=== PATIENT | female | born 1975 | race Caucasian/White ===

== ENCOUNTER 2016-05-28 13:39 | Emergency (ER) | payer OTHER ==
[2016-05-28 13:59] VITALS: BP 124/69; PULSE 111; TEMP 98.8; BMI 23.4
[2016-05-28] MEDS ORDERED: IBUPROFEN 600 MG TABLET (FP) PO ONE ×2 (14:31→14:47)
--- NOTE | 2016-05-28 14:47 | PDOC ---
History of Present Illness - General Chief Complaint: Sore Throat Stated Complaint: SORE THROAT Time Seen by Provider: 05/28/16 14:15 History Source: Patient Exam Limitations: No Limitations - History of Present Illness Initial Comments: 05/28/16 14:45 41 yr female with c/o sore throat. Pt c/o fever, chills sore throat for 4 days. Pt states her son at home is sick with cough URI symptoms. Pt has asthma, no allergies. 05/28/16 14:46 05/28/16 14:56 Timing/Duration: 1 week Severity: mild Associated Symptoms: reports: denies symptoms Past History - Past Medical History Allergies/Adverse Reactions: Allergies Allergy/AdvReac Type Severity Reaction Status Date / Time No Known Allergies Allergy Verified 05/28/16 13:59 Home Medications: Ambulatory Orders Albuterol Sulfate Inhaler - 2 spray IN PRN 03/27/14 Ferrous Sulfate [Feosol] 325 mg PO BID #60 ud 03/28/14 Diazepam [Valium] 2 mg PO TID PRN #10 tablet MDD 3 10/18/15 Naproxen [Naprosyn -] 500 mg PO BID PRN #20 tablet 10/18/15 Oxycodone HCl/Acetaminophen [Percocet 5-325 mg Tablet] 1 tab PO Q6H PRN #10 tablet MDD 4 10/18/15 Asthma: Yes Cancer: No Cardiac Disorders: No Diabetes: No HTN: No Seizures: No Thyroid Disease: No - Reproductive History (#): 2 Para: 1 Cervical CA: No Dysfunctional Uterine Bleeding: No Endometrial CA: No Polycystic Ovaries: No Therapeutic (s) & number: No Tubal Ligation: No Spontaneous : 0 - Psycho/Social/Smoking Cessation Hx Anxiety: No Suicidal Ideation: No Smoking Status: No Smoking History: Never smoked Have you smoked in the past 12 months: No Number of Cigarettes Smoked Daily: 0 Information on smoking cessation initiated: No Hx Alcohol Use: No Drug/Substance Use Hx: No Substance Use Type: None Hx Substance Use Treatment: No Review of Systems - Review of Systems Able to Perform ROS?: Yes Is the patient limited Maltese proficient: No Constitutional: No: Symptoms Reported HEENTM: Yes: See HPI, Throat Pain Respiratory: No: Symptoms reported Cardiac (ROS): No: Symptoms Reported ABD/GI: No: Symptoms Reported : No: Symptoms Reported Musculoskeletal: No: Symptoms Reported Integumentary: No: Symptoms Reported Neurological: No: Symptoms reported *Physical Exam - Vital Signs Last Vital Signs Temp Pulse Resp BP Pulse Ox 98.8 F 111 H 18 124/69 98 05/28/16 13:56 05/28/16 13:56 05/28/16 13:56 05/28/16 13:56 05/28/16 13:56 - Physical Exam General Appearance: Yes: Nourished, Appropriately Dressed HEENT: positive: EOMI, ADY, Pharyngeal Erythema. negative: Scleral Icterus (L) , Tonsillar Exudate, Tonsillar Erythema Neck: positive: Supple. negative: Lymphadenopathy (R), Lymphadenopathy (L) Respiratory/Chest: positive: Lungs Clear, Normal Breath Sounds. negative: Chest Tender Cardiovascular: positive: Regular Rhythm, Regular Rate Gastrointestinal/Abdominal: positive: Normal Bowel Sounds, Soft Musculoskeletal: positive: Normal Inspection Extremity: positive: Normal Capillary Refill, Normal Inspection, Normal Range of Motion Integumentary: positive: Normal Color, Dry, Warm Neurologic: positive: Fully Oriented, Alert, Normal Mood/Affect, Normal Response , Motor Strength 5/5 Medical Decision Making - Medical Decision Making 05/28/16 14:47 cc: sore throat fever no cough or abd pain will swab for strep motrin for pain 05/28/16 14:53 negative strep will treat for viral pharyngitis *DC/Admit/Observation/Transfer Diagnosis at time of Disposition: Pharyngitis Qualifiers: Pharyngitis/tonsillitis etiology: unspecified etiology Qualified Code(s): J02.9 - Acute pharyngitis, unspecified - Discharge Dispostion Disposition: HOME Condition at time of disposition: Good - Referrals Referrals: Marbella Nunez [Primary Care Provider] - Isak Swift MD [Staff Physician] - - Patient Instructions Additional Instructions: gargle with warm salt water 4-5 times a day take motrin 600mg every 6hrs for pain as needed (over the counter ibuprofen, advil) take pepcid as directed for any reflux or heartburn that may be causing your throat discomfort (over the counter pepcid) follow with ENT this week if not improving ice pops, jello, soft foods
== END 2016-05-28 15:17 | disposition home or self-care (01) ==
LOC: JERFT 13:39
DX: J02.9 Acute pharyngitis, unspecified (principal)
CPT/HCPCS: 87070; 87430; 99281-25

== ENCOUNTER 2016-12-27 07:44 | Emergency (ER) | payer OTHER ==
[2016-12-27 07:48] VITALS: BP 148/86; PULSE 66; TEMP 98.3; BMI 25.4
[2016-12-27] MEDS ORDERED: KETOROLAC TROMETHAMINE 60 MG/2 ML VIAL IM ONE (08:36)
--- NOTE | 2016-12-27 08:36 | PDOC ---
History of Present Illness - General Chief Complaint: Pain Stated Complaint: UPPER BACK PAIN, SOB Time Seen by Provider: 12/27/16 08:14 History Source: Patient Exam Limitations: No Limitations - History of Present Illness Initial Comments: 12/27/16 08:21 Patient is a 41-year-old female, no significant medical history currently on no medication reports that she had a cough 3 days ago after coughing developed left sided back pain. Reports the pain is reproducible with movement, patient denies any recent travel, no pain on inspiration, no use of exogenous estrogen. Patient denies any urinary symptoms, no hematuria. No Rash LMP 12/13 Past Medical History: Denies. Allergies: No known allergies Medications: None Family History: Non-contributory Social History: Denies smoking, alcohol use, or IVDU Review of Systems GENERAL/CONSTITUTIONAL: No fever or chills. No weakness. No weight change. HEAD, EYES, EARS, NOSE AND THROAT: No change in vision. No ear pain or discharge. No sore throat. CARDIOVASCULAR: No chest pain or shortness of breath. RESPIRATORY: No cough, wheezing, or hemoptysis. GASTROINTESTINAL: No nausea, vomiting, diarrhea or constipation. No rectal bleeding. GENITOURINARY: No dysuria, frequency, or change in urination. MUSCULOSKELETAL: No joint or muscle swelling or pain. No neck or back pain. Reproducible left lateral torso pain SKIN: No rash or easy bruising. NEUROLOGIC: No headache, vertigo, loss of consciousness, or loss of sensation. Physical Exam: GENERAL: The patient is awake, alert, and fully oriented, in no acute distress. EYES: Pupils equal, round and reactive to light, extraocular movements intact, sclera anicteric, conjunctiva clear. ENT: Ears normal, nares patent, oropharynx clear without exudates. Moist mucous membranes. No uvula deviation NECK: Normal range of motion, supple without lymphadenopathy, JVD, or masses. LUNGS: Breath sounds equal, clear to auscultation bilaterally. No wheezes, and no crackles. HEART: Regular rate and rhythm, normal S1 and S2 without murmur, rub or gallop. ABDOMEN: Soft, nontender, normoactive bowel sounds. No guarding, no rebound. No masses. No bruising or abrasions MUSCULOSKELETAL: Normal range of motion, no edema. No clubbing or cyanosis. No cords, erythema, or tenderness. No CVA Tenderness with fist palpation. There is pain reproduced on palpation to musculature of left lateral chest. NEUROLOGICAL: Cranial nerves II through XII grossly intact. Normal speech, normal gait. SKIN: Warm, Dry, normal turgor, no rashes or lesions noted. 12/27/16 10:47 12/27/16 12:41 Past History - Past Medical History Allergies/Adverse Reactions: Allergies Allergy/AdvReac Type Severity Reaction Status Date / Time No Known Allergies Allergy Verified 12/27/16 07:48 Home Medications: Ambulatory Orders Ibuprofen [Motrin -] 600 mg PO QID #28 tablet 12/27/16 Asthma: Yes Cancer: No Cardiac Disorders: No Diabetes: No HTN: No Seizures: No Thyroid Disease: No - Reproductive History (#): 2 Para: 1 Cervical CA: No Dysfunctional Uterine Bleeding: No Endometrial CA: No Polycystic Ovaries: No Therapeutic (s) & number: No Tubal Ligation: No Spontaneous : 0 - Suicide/Smoking/Psychosocial Hx Smoking Status: No Smoking History: Never smoked Have you smoked in the past 12 months: No Number of Cigarettes Smoked Daily: 0 Hx Alcohol Use: No Drug/Substance Use Hx: No Substance Use Type: None Hx Substance Use Treatment: No *Physical Exam - Vital Signs Last Vital Signs Temp Pulse Resp BP Pulse Ox 98.3 F 66 18 148/86 100 12/27/16 07:45 12/27/16 07:45 12/27/16 07:45 12/27/16 07:45 12/27/16 07:45 Medical Decision Making - Medical Decision Making 12/27/16 12:44 A/P: Patient here for evaluation of left lateral back pain. Denies any trauma, there is no rash, pain is reproducible with movement only. No pain on inspiration. Pain to musculature of chest. Urine analysis sent to rule out kidney stones, chest x-ray PA lateral Chest x-rays negative for acute cardiopulmonary disease. Urine analysis is noted with +1 blood, without CVA tenderness, or urinary symptoms. Toradol 60 mg IM times one given with good result Patient states relief of pain. We'll DC palpation on anti-inflammatories, if any urinary symptoms, back pain, or any other concerns patient to return immediately to ER she states that she will follow-up with her primary care doctor either today or tomorrow. I discussed the physical exam findings, ancillary test results and final diagnoses with the patient. I answered all of the patient's questions. The patient was satisfied with the care received and felt comfortable with the discharge plan and treatment plan. The patient will call to arrange follow-up and will return to the Emergency Department with any new, persistent or worsening symptoms. *DC/Admit/Observation/Transfer Diagnosis at time of Disposition: Costochondritis - Discharge Dispostion Disposition: HOME Condition at time of disposition: Good Admit: No - Prescriptions Prescriptions: Ibuprofen [Motrin -] 600 mg PO QID #28 tablet - Referrals Referrals: Marbella Nunez [Primary Care Provider] - - Patient Instructions Additional Instructions: If you develop urinary pain, fever, increased back pain, hematuria, or any other concerns return to ER Motrin every 6 hours with food for the next 3 days if pain persists follow up with primary care doctor or return to ER - Post Discharge Activity Forms/Work/School Notes: Back to Work
[2016-12-27] MEDS ORDERED: KETOROLAC TROMETHAMINE 60 MG/2 ML VIAL ONE (09:01)
[2016-12-27 10:21] LABS: URINE APPEARANCE SLCLOUDY; URINE BILIRUBIN NEGATIVE (NEGATIVE); URINE BLOOD 1+ (NEGATIVE); URINE COLOR LTYELLOW; URINE GLUCOSE (UA) NEGATIVE (NEGATIVE); URINE KETONE NEGATIVE (NEGATIVE); URINE NITRITE NEGATIVE (NEGATIVE); URINE PROTEIN NEGATIVE (NEGATIVE); URINE UROBILINOGEN NEGATIVE mg/dL (0.2-1.0)
[2016-12-27 10:31] LABS: URINE RBC 3 /hpf (0-3); URINE WBC <1 /hpf (3-5)
[2016-12-27 14:23] LABS: URINE LEUK ESTERASE Negative (NEGATIVE)
== END 2016-12-27 11:02 | disposition home or self-care (01) ==
LOC: JER 07:44 → JERFT 07:44
PROC: 3E0233Z Introduction of Anti-inflammatory into Muscle, Percutaneous Approach (ICD-10-PCS; principal; 2016-12-27)
DX: M94.0 Chondrocostal junction syndrome [Tietze] (principal)
CPT/HCPCS: 71020-TC; 81003; 81015; 84703; 99281-25

== ENCOUNTER 2017-11-10 17:09 | Emergency (ER) | payer OTHER ==
[2017-11-10 17:21] VITALS: BP 117/69; PULSE 74; TEMP 99.1; BMI 26.4
[2017-11-10] MEDS ORDERED: KETOROLAC TROMETHAMINE 60 MG/2 ML VIAL ONE (18:46)
[2017-11-10] MEDS ORDERED: KETOROLAC TROMETHAMINE 60 MG/2 ML VIAL IM ONE (19:03)
--- NOTE | 2017-11-10 19:14 | PDOC ---
History of Present Illness - General Chief Complaint: Pain, Acute Stated Complaint: PAIN Time Seen by Provider: 11/10/17 18:17 History Source: Patient Exam Limitations: No Limitations - History of Present Illness Initial Comments: 11/10/17 19:03 Patient is here with re-exacerbation of neck and shoulder pain. Has had significant shoulder issues including a rotator cuff repair 2 years ago and has suffered with neck and shoulder pain since that time. States has had no changes in exercise, no heavy lifting, no in 3 injury or trauma recently but states has progressively worsening of pain primarily to the right side of her neck which radiates to her scalp and right shoulder. Occurred: reports: last week Severity: reports: mild, moderate Pain Location: reports: head, neck, upper extremity Method of Injury: Yes: unknown Modifying Factors: improves with: None, pain medication (right shoulder) Associated Symptoms (Fall): headache, neck pain Past History - Travel Traveled outside of the country in the last 30 days: No Close contact w/someone who was outside of country & ill: No - Past Medical History Allergies/Adverse Reactions: Allergies Allergy/AdvReac Type Severity Reaction Status Date / Time No Known Allergies Allergy Verified 11/10/17 17:21 Home Medications: Ambulatory Orders Cyclobenzaprine HCl 10 mg PO Q8H PRN #14 tablet 11/10/17 Naproxen [Naprosyn -] 500 mg PO BID #30 tablet 11/10/17 Asthma: Yes Cancer: No Cardiac Disorders: No COPD: No Diabetes: No HTN: No Seizures: No Thyroid Disease: No - Reproductive History (#): 2 Para: 1 Cervical CA: No Dysfunctional Uterine Bleeding: No Endometrial CA: No Polycystic Ovaries: No Therapeutic (s) & number: No Tubal Ligation: No Spontaneous : 0 - Suicide/Smoking/Psychosocial Hx Smoking Status: No Smoking History: Never smoked Have you smoked in the past 12 months: No Number of Cigarettes Smoked Daily: 0 Hx Alcohol Use: No Drug/Substance Use Hx: No Substance Use Type: None Hx Substance Use Treatment: No Review of Systems - Review of Systems Able to Perform ROS?: Yes Is the patient limited Belarusian proficient: Yes Constitutional: Yes: Symptoms Reported, See HPI, Malaise. No: Fever HEENTM: No: Symptoms Reported Respiratory: No: Symptoms reported *Physical Exam - Vital Signs Last Vital Signs Temp Pulse Resp BP Pulse Ox 99.1 F 74 18 117/69 100 11/10/17 17:18 11/10/17 17:18 11/10/17 17:18 11/10/17 17:18 11/10/17 17:18 - Physical Exam General Appearance: Yes: Nourished, Appropriately Dressed HEENT: positive: ADY, TMs Normal Neck: positive: Supple. negative: Tender Respiratory/Chest: positive: Lungs Clear Gastrointestinal/Abdominal: positive: Soft Musculoskeletal: positive: Normal Inspection, Muscle Spasm (palpable spasm noted to the sternocleidomastoid and paravertebral spinous muscles worse on the right than the left. With pressure at the insertion sites can reproduce scalp headache and muscular tenderness. Has no C-spine tenderness, shoulder capsule has no). negative: Decreased Range of Motion Extremity: positive: Normal Capillary Refill, Normal Inspection, Tender. negative: Normal Range of Motion Integumentary: positive: Normal Color, Dry, Warm. negative: Rash Neurologic: positive: route salesperson II-XII NML intact, Fully Oriented, Alert, Normal Mood/ Affect, Normal Response Progress Note - Progress Note Progress Note: Cervical strain with acute on chronic right shoulder pain. We will treat with NSAIDs and cyclobenzaprine *DC/Admit/Observation/Transfer Diagnosis at time of Disposition: Cervical myofascial strain Qualifiers: Encounter type: initial encounter Qualified Code(s): S16.1XXA - Strain of muscle, fascia and tendon at neck level, initial encounter - Discharge Dispostion Disposition: HOME Condition at time of disposition: Stable Decision to Admit order: No - Referrals - Patient Instructions Printed Discharge Instructions: DI for Cervical Muscle Strain Additional Instructions: Rest, no heavy lifting or exercise until pain is resolved Hot soaks to neck and low back as often as possible/hot showers or Jacuzzis No massage or therapy until spasm is gone Continue Naprosyn 500 mg tablet, 1 tablet every 12 hours for the next 3 days then as needed for pain and swelling Cyclobenzaprine 1-10mg every 8 hours as needed for spasm If not significant improvement within 24 hours with medication and rest regime, followup with private physician for change in medications and /or therapy. - Post Discharge Activity Forms/Work/School Notes: Back to Work
== END 2017-11-10 19:17 | disposition home or self-care (01) ==
LOC: JERFT 17:09
PROC: 3E0233Z Introduction of Anti-inflammatory into Muscle, Percutaneous Approach (ICD-10-PCS; principal; 2017-11-10)
DX: S16.1XXA Strain of muscle, fascia and tendon at neck level, initial encounter (principal); X58.XXXA Exposure to other specified factors, initial encounter; Y93.89 Activity, other specified; Y92.9 Unspecified place or not applicable; J45.909 Unspecified asthma, uncomplicated
CPT/HCPCS: 96372; 99281-25

== ENCOUNTER 2018-05-24 13:14 | Emergency (ER) | payer OTHER ==
--- NOTE | 2018-05-24 13:48 | PDOC ---
Rapid Medical Evaluation Chief Complaint: Back Pain Time Seen by Provider: 05/24/18 13:47 Medical Evaluation: Allergies Allergy/AdvReac Type Severity Reaction Status Date / Time No Known Allergies Allergy Verified 11/10/17 17:21 05/24/18 13:47 I performed a brief in-person evaluation of this patient. Chief complaint: Left flank pain, hx kidney stones Pertinent physical exam findings: Left CVA tenderness I have ordered the following: CBC, CMP, UA, urine culture, urine preg Patient to proceed to the ED for further evaluation. Discharge Disposition - Diagnosis Flank pain - Referrals - Patient Instructions - Post Discharge Activity
[2018-05-24 13:49] VITALS: TEMP 98.3; BMI 27.2
[2018-05-24 14:15] LABS: BASO % 0.2 % (0-2.0); EOS % 3.4 % (0-4.5); HEMATOCRIT 38.1 % (32.4-45.2); HEMOGLOBIN 13.1 GM/dL (10.7-15.3); LYMPH % 27.3 % (8-40); MCH 30.1 pg (25.7-33.7); MCHC 34.4 g/dl (32.0-36.0); MEAN CELL VOLUME 87.5 fl (80-96); MEAN PLT VOLUME 8.1 fl (7.5-11.1); MONO % 4.9 % (3.8-10.2); NEUT % 64.2 % (42.8-82.8); PLATELET COUNT 316 K/MM3 (134-434); RBC 4.35 M/mm3 (3.60-5.2); WHITE BLOOD COUNT 9.1 K/mm3 (4.0-10.0)
[2018-05-24 14:34] LABS: URINE APPEARANCE CLEAR; URINE BILIRUBIN NEGATIVE (<2.0 mg/dL); URINE COLOR STRAW; URINE GLUCOSE (UA) NEGATIVE (NEGATIVE); URINE KETONE NEGATIVE (NEGATIVE); URINE LEUK ESTERASE NEGATIVE (NEGATIVE); URINE NITRITE NEGATIVE (NEGATIVE); URINE PROTEIN NEGATIVE (NEGATIVE); URINE UROBILINOGEN NEGATIVE mg/dL (0.2-1.0)
[2018-05-24 14:36] LABS: HCG,QUALITATIVE URINE Negative
[2018-05-24 14:42] LABS: ALK PHOS 59 U/L (45-117); ANION GAP 5 MMOL/L (8-16); BILIRUBIN,TOTAL 0.3 mg/dL (0.2-1); BLOOD UREA NITROGEN 6 mg/dL (7-18); CALCIUM 9.6 mg/dL (8.5-10.1); CHLORIDE 103 mmol/L (98-107); CO2 28 mmol/L (21-32); CREATININE 0.6 mg/dL (0.55-1.3); GLUCOSE,RANDOM 82 mg/dL (74-106); POTASSIUM 4.2 mmol/L (3.5-5.1); SGOT/AST 9 U/L (15-37); SGPT/ALT 13 U/L (13-61); SODIUM 135 mmol/L (136-145); TOT PROT 8.5 g/dl (6.4-8.2)
[2018-05-24] MEDS ORDERED: IBUPROFEN 600 MG TABLET (FP) PO ONE ×2 (16:39→16:41)
--- NOTE | 2018-05-24 17:40 | PDOC ---
History of Present Illness - General Chief Complaint: Back Pain Stated Complaint: KIDNEY PAIN Time Seen by Provider: 05/24/18 13:47 - History of Present Illness Initial Comments: The pt is a 43F w/ a history of kidney stones, ovarian cysts, and pyelonephritis who presents for evaluation of L flank pain for 3 days. She reports the pain is achy/cramping, is worse in her L back, radiates to her flank , reports associated dysuria/frequency, and was not alleviated by Tylenol. Reports similar pain with previous kidney stones in the past. She denies fevers , hematuria, diarrhea, blood in stool, chest pain, PO intolerance, or vaginal bleeding/discharge. Past History - Past Medical History Allergies/Adverse Reactions: Allergies Allergy/AdvReac Type Severity Reaction Status Date / Time No Known Allergies Allergy Verified 11/10/17 17:21 Home Medications: Ambulatory Orders NK [No Known Home Medication] 05/24/18 Asthma: Yes Cancer: No Cardiac Disorders: No COPD: No Diabetes: No HTN: No Seizures: No Thyroid Disease: No Other medical history: Kidney stone - Reproductive History (#): 2 Para: 1 Cervical CA: No Dysfunctional Uterine Bleeding: No Endometrial CA: No Polycystic Ovaries: No Therapeutic (s) & number: No Tubal Ligation: No Spontaneous : 0 - Suicide/Smoking/Psychosocial Hx Smoking Status: No Smoking History: Never smoked Have you smoked in the past 12 months: No Number of Cigarettes Smoked Daily: 0 Information on smoking cessation initiated: No Hx Alcohol Use: No Drug/Substance Use Hx: No Substance Use Type: None Hx Substance Use Treatment: No Review of Systems - Review of Systems Able to Perform ROS?: Yes Comments:: GENERAL/CONSTITUTIONAL: No fever or chills. No weakness HEAD, EYES, EARS, NOSE AND THROAT: No change in vision. No ear pain or discharge. No sore throat CARDIOVASCULAR: No chest pain or shortness of breath RESPIRATORY: Denies cough, hemoptysis GASTROINTESTINAL: No nausea, vomiting, diarrhea or constipation MUSCULOSKELETAL: No joint or muscle swelling or pain. No neck pain SKIN: No rash NEUROLOGIC: No headache, vertigo, loss of consciousness, or change in strength/ sensation ENDOCRINE: No increased thirst. No abnormal weight change HEMATOLOGIC/LYMPHATIC: No anemia, easy bleeding, or history of blood clots ALLERGIC/IMMUNOLOGIC: No hives or skin allergy Is the patient limited Georgian proficient: No *Physical Exam - Vital Signs Last Vital Signs Temp Pulse Resp BP Pulse Ox 98.3 F 82 20 117/75 100 05/24/18 13:47 05/24/18 13:47 05/24/18 13:47 05/24/18 13:47 05/24/18 13:47 - Physical Exam Comments: GENERAL: Awake, alert, and oriented to person/place/time, in no acute distress HEAD: No signs of trauma, normocephalic, atraumatic EYES: PERRLA, EOMI, sclera anicteric, conjunctiva clear ENT: Hearing grossly normal, nares patent, oropharynx clear without exudates. Moist mucosa LUNGS: No distress, speaks full sentences, clear to auscultation bilaterally HEART: Regular rate and rhythm, normal S1 and S2, no murmurs appreciated, peripheral pulses normal and equal bilaterally BACK: L CVA TTP ABDOMEN: Soft, LLQ pain that is referred to her back, normoactive bowel sounds. No guarding, no rebound EXTREMITIES: Normal inspection, Normal range of motion, no edema. No clubbing or cyanosis NEUROLOGICAL: Cranial nerves II through XII grossly intact. Normal speech, no focal sensorimotor deficits SKIN: Warm, Dry Moderate Sedation - Procedure Monitoring Vital Signs: Procedure Monitoring Vital Signs Temperature 98.3 F 05/24/18 13:47 Pulse Rate 82 05/24/18 13:47 Respiratory Rate 20 05/24/18 13:47 Blood Pressure 117/75 05/24/18 13:47 O2 Sat by Pulse Oximetry (%) 100 05/24/18 13:47 ED Treatment Course - LABORATORY CBC & Chemistry Diagram: 05/24/18 13:55 05/24/18 13:55 - ADDITIONAL ORDERS Additional order review: Laboratory Results 05/24/18 05/24/18 14:01 13:55 Sodium 135 L Potassium 4.2 Chloride 103 Carbon Dioxide 28 Anion Gap 5 L BUN 6 L Creatinine 0.6 Creat Clearance w eGFR 109.11 Random Glucose 82 Calcium 9.6 Total Bilirubin 0.3 AST 9 L ALT 13 Alkaline Phosphatase 59 Total Protein 8.5 H Albumin 4.0 Urine Color Straw Urine Appearance Clear Urine pH 6.0 Ur Specific [place] 1.004 L Urine Protein Negative Urine Glucose (UA) Negative Urine Ketones Negative Urine Blood Negative Urine Nitrite Negative Urine Bilirubin Negative Urine Urobilinogen Negative Ur Leukocyte Esterase Negative Urine HCG, Qual Negative 05/24/18 13:55 RBC 4.35 MCV 87.5 MCHC 34.4 RDW 13.0 D MPV 8.1 Neutrophils % 64.2 Lymphocytes % 27.3 D Monocytes % 4.9 Eosinophils % 3.4 Basophils % 0.2 - RADIOLOGY Radiology Studies Ordered: Category Date Time Status SPIRAL- RENAL-STONE CT [CT] Stat CT Scan 05/24/18 16:41 Taken - Medications Given in the ED: ED Medications Discontinued Medications Generic Name Dose Route Start Last Admin Trade Name Freq PRN Reason Stop Dose Admin Ibuprofen 600 mg 05/24/18 16:41 05/24/18 17:09 Motrin - PO 05/24/18 16:42 600 mg ONCE ONE Administration Medical Decision Making - Medical Decision Making The pt is a 43F w/ a history of nephrolithiasis, pyelonephritis, and ovarian cysts who presents for evaluation of 3 days of L flank pain and dysuria ED Course Labs sent Ibuprofen for pain UA w/o evidence of UTI CT w/o evidence of stone or hydro No leukocytosis No anemia No MISSY Plan for transvaginal US for evaluation of ovarian cyst Pt singed out to night team *DC/Admit/Observation/Transfer Diagnosis at time of Disposition: Flank pain - Discharge Dispostion Disposition: HOME Condition at time of disposition: Improved Decision to Admit order: No - Referrals - Patient Instructions Printed Discharge Instructions: DI for Ovarian Cyst Additional Instructions: You were evaluated today in the ER for your pain. We performed abdominal CT as well as transvaginal ultrasound and found a 2cm left ovarian cyst that could be causing your pain. No other concerning findings were found today. Please follow- up with your DIGITAL SOLUTION ARCHITECT in 1-2 days for further evaluation. Return to ER if any increase in pain, fever, chills, or other concerning findings. - Post Discharge Activity
--- NOTE | 2018-05-24 19:33 | PDOC ---
Attending Attestation - Resident Resident Name: Raffaele Beck - ED Attending Attestation I have performed the following: I have examined & evaluated the patient, The case was reviewed & discussed with the resident, I agree w/resident's findings & plan, Exceptions are as noted - HPI HPI: 05/24/18 23:29 The patient is a 43 year old female with a significant PMH of kidney stones, pyelonephritis, and ovarian cysts who presents to the emergency department with left flank pain for the past 3 days. Patient states the left flank pain is constant and radiates the the left lower quadrant. Patient admits to associated dysuria and frequency, but denies any hematuria. Patient also endorses nausea, but denies any vomiting. Denies vaginal DC. States there is no likelihood she is . The patient denies chest pain, shortness of breath, headache and dizziness. Denies fever, chills, nausea, vomit, diarrhea and constipation. Denies urgency and hematuria. Allergies: NKA Past surgical history: None reported Social history: No reported alcohol, drug or cigarette use. - Physicial Exam PE: 05/24/18 23:30 agree with resident exam - Medical Decision Making 05/24/18 19:30 43yo F hx renal colic, pyelo, ovarian cyst presents to the ED with 3 days of L flank radiating to LLQ pain. Pt states it feels like previous renal colic. Vitals wnl. Pt well appearing, non toxic. Exam with no abd ttp, no CVAT. DDx IBNLT renal colic vs UTI vs diverticulitis vs ovarian cyst. UPT neg, UA neg CTAP completely neg for acute pathology, including neg for diverticulitis. Possible ovarian cyst? Pt declines pelvic exam, but amenable to TVUS Case signed out to oncoming attending for f/u on US, reassessment, and dispo
--- NOTE | 2018-05-24 20:02 | PDOC ---
*Physical Exam - Vital Signs Last Vital Signs Temp Pulse Resp BP Pulse Ox 98.3 F 78 18 106/77 100 05/24/18 19:00 05/24/18 19:00 05/24/18 19:00 05/24/18 19:00 05/24/18 19:00 ED Treatment Course - LABORATORY CBC & Chemistry Diagram: 05/24/18 13:55 05/24/18 13:55 - ADDITIONAL ORDERS Additional order review: Laboratory Results 05/24/18 05/24/18 14:01 13:55 Sodium 135 L Potassium 4.2 Chloride 103 Carbon Dioxide 28 Anion Gap 5 L BUN 6 L Creatinine 0.6 Creat Clearance w eGFR 109.11 Random Glucose 82 Calcium 9.6 Total Bilirubin 0.3 AST 9 L ALT 13 Alkaline Phosphatase 59 Total Protein 8.5 H Albumin 4.0 Urine Color Straw Urine Appearance Clear Urine pH 6.0 Ur Specific Mounds 1.004 L Urine Protein Negative Urine Glucose (UA) Negative Urine Ketones Negative Urine Blood Negative Urine Nitrite Negative Urine Bilirubin Negative Urine Urobilinogen Negative Ur Leukocyte Esterase Negative Urine HCG, Qual Negative 05/24/18 13:55 RBC 4.35 MCV 87.5 MCHC 34.4 RDW 13.0 D MPV 8.1 Neutrophils % 64.2 Lymphocytes % 27.3 D Monocytes % 4.9 Eosinophils % 3.4 Basophils % 0.2 - Medications Given in the ED: ED Medications Discontinued Medications Generic Name Dose Route Start Last Admin Trade Name Freq PRN Reason Stop Dose Admin Ibuprofen 600 mg 05/24/18 16:41 05/24/18 17:09 Motrin - PO 05/24/18 16:42 600 mg ONCE ONE Administration Medical Decision Making - Medical Decision Making 05/24/18 20:[address] Beck. 05/24/18 20:02 Patient is a 43 yo female w/ pmh of Asthma who presents for evaluation of left flank pain in the setting of prior nephrolithiasis. Patient evaluated with CT spiral w/ no concerning findings. Patient currently well appearing; pending TVUS for further evaluation. Labs otherwise wnl at this time. 05/24/18 20:48 TVUS significant for 2cm L ovarian follicle/cyst. No acute pathology at this time. Patient well appearing, no concern for acute process. Patient will follow- up with TEXTILE CONVERSION MANAGER for further evaluation. Discharging to home. *DC/Admit/Observation/Transfer Diagnosis at time of Disposition: Flank pain - Discharge Dispostion Disposition: HOME - Referrals - Patient Instructions Printed Discharge Instructions: DI for Ovarian Cyst Additional Instructions: You were evaluated today in the ER for your pain. We performed abdominal CT as well as transvaginal ultrasound and found a 2cm left ovarian cyst that could be causing your pain. No other concerning findings were found today. Please follow- up with your TEXTILE CONVERSION MANAGER in 1-2 days for further evaluation. Return to ER if any increase in pain, fever, chills, or other concerning findings. - Post Discharge Activity
--- NOTE | 2018-05-24 20:32 | PDOC ---
*Physical Exam - Vital Signs Last Vital Signs Temp Pulse Resp BP Pulse Ox 98.3 F 78 18 106/77 100 05/24/18 19:00 05/24/18 19:00 05/24/18 19:00 05/24/18 19:00 05/24/18 19:00 ED Treatment Course - LABORATORY CBC & Chemistry Diagram: 05/24/18 13:55 05/24/18 13:55 - ADDITIONAL ORDERS Additional order review: Laboratory Results 05/24/18 05/24/18 14:01 13:55 Sodium 135 L Potassium 4.2 Chloride 103 Carbon Dioxide 28 Anion Gap 5 L BUN 6 L Creatinine 0.6 Creat Clearance w eGFR 109.11 Random Glucose 82 Calcium 9.6 Total Bilirubin 0.3 AST 9 L ALT 13 Alkaline Phosphatase 59 Total Protein 8.5 H Albumin 4.0 Urine Color Straw Urine Appearance Clear Urine pH 6.0 Ur Specific Post 1.004 L Urine Protein Negative Urine Glucose (UA) Negative Urine Ketones Negative Urine Blood Negative Urine Nitrite Negative Urine Bilirubin Negative Urine Urobilinogen Negative Ur Leukocyte Esterase Negative Urine HCG, Qual Negative 05/24/18 13:55 RBC 4.35 MCV 87.5 MCHC 34.4 RDW 13.0 D MPV 8.1 Neutrophils % 64.2 Lymphocytes % 27.3 D Monocytes % 4.9 Eosinophils % 3.4 Basophils % 0.2 - Medications Given in the ED: ED Medications Discontinued Medications Generic Name Dose Route Start Last Admin Trade Name Freq PRN Reason Stop Dose Admin Ibuprofen 600 mg 05/24/18 16:41 05/24/18 17:09 Motrin - PO 05/24/18 16:42 600 mg ONCE ONE Administration Medical Decision Making - Medical Decision Making 05/24/18 20:30 Pt has left flank pain; pain is elicited with deep palpation, rather than with percussion. She has no fever or chills. She has no abd pain. Pt is eating well. She states that she always has constipation. She complains of slight frequency of urination as well as some heaviness when she urinates. She has no other complaints. Pt was signed out to me. All labs and UA are normal. Pt is awaiting sono of her ovaries. 05/24/18 21:49 CT and sono normal. Pt stable to go home. *DC/Admit/Observation/Transfer Diagnosis at time of Disposition: Flank pain - Discharge Dispostion Disposition: HOME - Referrals - Patient Instructions Printed Discharge Instructions: DI for Ovarian Cyst Additional Instructions: You were evaluated today in the ER for your pain. We performed abdominal CT as well as transvaginal ultrasound and found a 2cm left ovarian cyst that could be causing your pain. No other concerning findings were found today. Please follow- up with your MANAGER CULTURE in 1-2 days for further evaluation. Return to ER if any increase in pain, fever, chills, or other concerning findings. - Post Discharge Activity
[2018-05-24 21:06] VITALS: BP 116/79; PULSE 82
== END 2018-05-24 21:07 | disposition home or self-care (01) ==
LOC: JER 13:14
DX: R10.32 Left lower quadrant pain (principal)
CPT/HCPCS: 36415; 74176-TC; 76830-TC; 80053; 81003; 84703; 85025; 87086; 99283-25

== ENCOUNTER 2018-09-10 04:48 | Emergency (ER) | payer OTHER ==
[2018-09-10 05:14] VITALS: BP 108/71; PULSE 77; TEMP 97.6; BMI 27.3
--- NOTE | 2018-09-10 05:41 | PDOC ---
Attending Attestation - Resident Resident Name: Lokesh Parham - ED Attending Attestation I have performed the following: I have examined & evaluated the patient, The case was reviewed & discussed with the resident, I agree w/resident's findings & plan - HPI HPI: 09/10/18 06:44 43-year-old female with pelvic pain currently menstruating There is no associated fever vomiting or back pain. - Physicial Exam PE: 09/10/18 06:46 GENERAL: Awake, in no acute distress HEAD: No signs of trauma EYES: ENT:clear without exudates. Moist mucosa NECK: Normal ROM, LUNGS:. Normal work of breathing. HEART: Regular rate and rhythm, ABDOMEN: Soft, nondistended CHEST WALL: : No CMT, fresh blood in the vaginal vault BACK: No midline tenderness. EXTREMITIES:. No erythema, or tenderness NEUROLOGICAL: Alert, SKIN: Warm, Dry - Medical Decision Making 09/10/18 06:47 43-year-old female with pelvic pain and active menses Plan for ultrasound to rule out hemorrhagic ovarian cyst/torsion as pain is out of proportion for simple dysmenorrhea Case signed out to day shift
--- NOTE | 2018-09-10 06:14 | PDOC ---
History of Present Illness - General Chief Complaint: Pain Stated Complaint: ABD PAIN Time Seen by Provider: 09/10/18 05:34 History Source: Patient Exam Limitations: No Limitations - History of Present Illness Initial Comments: 09/10/18 06:12 43F with PMH of 2 c-sections, tubal ligation, and ovarian cysts presents with abdominal pain in the setting of menses. Patient's period began yesterday, began experiencing 9/10 lower abdominal pain in the evening. New onset, describes as similar to contractions during childbirth, has pain with menses normally but never to this extent. Dysmenorrhea began one year ago, after she was found to have 2 ovarian cysts, described to her by PMD as small but not yet worked up. Since, periods are irregular with increased bleeding and clots. Pain unaffected by position, took 2 Tylenol 500mg last night with limited relief. Has some nausea and constipation, but denies vomiting. Appetite normal, eating without issues. Last intercourse 2 days ago, no dyspareunia noted, denies being s/p tubal ligation. No dysuria or hematuria. No fevers/chills, chest pain, SOB. Past History - Past Medical History Allergies/Adverse Reactions: Allergies Allergy/AdvReac Type Severity Reaction Status Date / Time No Known Allergies Allergy Verified 09/10/18 05:14 Home Medications: Ambulatory Orders Albuterol Sulfate Inhaler - [Ventolin Hfa Inhaler -] 2 inh PO Q4H PRN 09/10/18 Fluticasone Propionate [Flovent Diskus] 100 mcg IH BID 09/10/18 Omeprazole 20 mg PO DAILY 09/10/18 Asthma: Yes Cancer: No Cardiac Disorders: No COPD: No Diabetes: No GI Disorders: Yes (acid reflux) HTN: No Seizures: No Thyroid Disease: No - Reproductive History Is Patient Now?: No (#): 2 Para: 1 Cervical CA: No Dysfunctional Uterine Bleeding: No Endometrial CA: No Polycystic Ovaries: No Therapeutic (s) & number: No Tubal Ligation: Yes Spontaneous : 0 - Immunization History Immunization Up to Date: Yes - Suicide/Smoking/Psychosocial Hx Smoking Status: No Smoking History: Never smoked Have you smoked in the past 12 months: No Number of Cigarettes Smoked Daily: 0 Hx Alcohol Use: Yes (Social) Drug/Substance Use Hx: No Substance Use Type: None Hx Substance Use Treatment: No Review of Systems - Review of Systems Able to Perform ROS?: Yes Is the patient limited Vietnamese proficient: No Constitutional: Yes: See HPI, Other. No: Chills, Fever, Loss of Appetite, Weakness HEENTM: Yes: See HPI. No: Recent change in vision, Difficulty Swallowing Respiratory: No: Cough, Shortness of Breath Cardiac (ROS): Yes: Lightheadedness. No: Chest Pain, Edema, Palpitations, Syncope ABD/GI: Yes: See HPI. No: Abdominal Distended, Blood Streaked Bowels : No: Burning, Dysuria, Discharge, Hematuria, Incontinence Integumentary: No: Erythema, Flushing, Sweating Neurological: Yes: Headache. No: Weakness Endocrine: No: Excessive Sweating, Flushing, Intolerance to Cold, Intolerance to Heat, Increased Urine Hematologic/Lymphatic: Yes: Blood Clots (vaginal bleeding with clots). No: Anemia *Physical Exam - Vital Signs Last Vital Signs Temp Pulse Resp BP Pulse Ox 97.6 F 77 20 108/71 100 09/10/18 05:00 09/10/18 05:00 09/10/18 05:00 09/10/18 05:00 09/10/18 05:00 - Physical Exam General Appearance: Yes: Nourished, Appropriately Dressed, Apparent Distress, Mild Distress HEENT: positive: Normal Voice, Symmetrical. negative: Scleral Icterus (R), Scleral Icterus (L), Rhinorrhea Neck: positive: Trachea midline, Supple Respiratory/Chest: positive: Lungs Clear, Normal Breath Sounds. negative: Respiratory Distress, Labored Respiration, Crackles, Rales, Rhonchi Cardiovascular: positive: Regular Rhythm, Regular Rate. negative: Edema, Murmur Female Pelvic Exam: positive: normal external exam, cervical os closed, normal adnexa, normal size ovaries, vaginal bleeding (some small clots and serosang in vaginal vault). negative: CMT, discharge, lesions, adnexal tenderness Gastrointestinal/Abdominal: positive: Normal Bowel Sounds, Tender (LLQ pain L > R), Soft. negative: Organomegaly, Pulsatile Mass Musculoskeletal: positive: Normal Inspection Extremity: positive: Normal Capillary Refill, Normal Range of Motion (patient observed walking without assistance) Integumentary: positive: Normal Color, Dry, Warm. negative: Swelling, Ecchymosis Neurologic: positive: Fully Oriented, Alert, Normal Mood/Affect, Normal Response ED Treatment Course - LABORATORY CBC & Chemistry Diagram: 09/10/18 06:27 09/10/18 06:27 Medical Decision Making - Medical Decision Making 09/10/18 06:35 Patient is a 43F with PMH 2x , tubal ligation, 2x ovarian cysts presents with abdominal pain in the context of menses. Presenting with 9/10 LQ abd pain L>R with ddx concerning for cyst rupture, ovarian torsion, ectopic , PID. Performed pelvic exam under the guidance of Dr. Hwang, G/C sample sent. Ordered rapid test, CMP, and CBC for assessment of anemia. Will order pelvic US once results of test return. Signed out to AM team. *DC/Admit/Observation/Transfer Diagnosis at time of Disposition: Abdominal pain - Discharge Dispostion Condition at time of disposition: Fair - Referrals Referrals: Marbella Nunez [Primary Care Provider] - - Patient Instructions - Post Discharge Activity
[2018-09-10 06:39] LABS: BASO % 0.6 % (0-2.0); EOS % 3.7 % (0-4.5); HEMATOCRIT 37.3 % (32.4-45.2); HEMOGLOBIN 12.7 GM/dL (10.7-15.3); LYMPH % 34.7 % (8-40); MCH 29.2 pg (25.7-33.7); MCHC 33.9 g/dl (32.0-36.0); MEAN CELL VOLUME 86.1 fl (80-96); MEAN PLT VOLUME 7.8 fl (7.5-11.1); MONO % 4.9 % (3.8-10.2); NEUT % 56.1 % (42.8-82.8); PLATELET COUNT 334 K/MM3 (134-434); RBC 4.34 M/mm3 (3.60-5.2); WHITE BLOOD COUNT 6.9 K/mm3 (4.0-10.0)
[2018-09-10 07:05] LABS: ALBUMIN 3.7 g/dl (3.4-5.0); BILIRUBIN,TOTAL 0.1 mg/dL (0.2-1); BLOOD UREA NITROGEN 6.8 mg/dL (7-18); CREATININE 0.7 mg/dL (0.55-1.3); POTASSIUM 4.5 mmol/L (3.5-5.1); TOT PROT 8.3 g/dl (6.4-8.2)
--- NOTE | 2018-09-10 07:39 | PDOC ---
*Physical Exam - Vital Signs Last Vital Signs Temp Pulse Resp BP Pulse Ox 97.6 F 77 20 108/71 100 09/10/18 05:00 09/10/18 05:00 09/10/18 05:00 09/10/18 05:00 09/10/18 05:00 - Physical Exam General Appearance: Yes: Nourished, Appropriately Dressed, Mild Distress HEENT: positive: EOMI, ADY Respiratory/Chest: positive: Lungs Clear, Normal Breath Sounds Cardiovascular: positive: Regular Rhythm, Regular Rate. negative: JVD, Murmur Gastrointestinal/Abdominal: positive: Normal Bowel Sounds, Soft, Tenderness ( lower abdomen) Musculoskeletal: negative: CVA Tenderness Extremity: positive: Normal Capillary Refill. negative: Pedal Edema Integumentary: positive: Normal Color, Dry, Warm ED Treatment Course - LABORATORY CBC & Chemistry Diagram: 09/10/18 06:27 09/10/18 06:27 - ADDITIONAL ORDERS Additional order review: Laboratory Results 09/10/18 09/10/18 06:48 06:27 Sodium 141 Potassium 4.5 Chloride 108 H Carbon Dioxide 29 Anion Gap 4 L BUN 6.8 L Creatinine 0.7 Est GFR (CKD-EPI)AfAm 122.99 Est GFR (CKD-EPI)NonAf 106.12 Random Glucose 87 Calcium 9.0 Total Bilirubin 0.1 L AST 12 L ALT 12 L Alkaline Phosphatase 70 Total Protein 8.3 H Albumin 3.7 Serum , Qual Negative 09/10/18 06:27 RBC 4.34 MCV 86.1 MCHC 33.9 RDW 13.0 MPV 7.8 Neutrophils % 56.1 Lymphocytes % 34.7 D Monocytes % 4.9 Eosinophils % 3.7 Basophils % 0.6 Medical Decision Making - Medical Decision Making 09/10/18 20:13 Pt signed out to me by morning resident. 43yo F with lower abdominal pain, currently menstruating. Pending labs and TVUS. labs wnl, negative . TVUS R ovarian cyst with blood and other debris. Likely cause of pain. Pt given Tylenol in ED, will dc with rx for motrin. Referral to extension work instructor given. Pt is stable, safe for dc home. given return precautions. pt agrees to plan. *DC/Admit/Observation/Transfer Diagnosis at time of Disposition: Abdominal pain Qualifiers: Abdominal location: lower abdomen, unspecified Qualified Code(s): R10.30 - Lower abdominal pain, unspecified Ovarian cyst Qualifiers: Laterality: right Qualified Code(s): N83.201 - Unspecified ovarian cyst, right side - Discharge Dispostion Disposition: HOME Condition at time of disposition: Good Decision to Admit order: No - Prescriptions Prescriptions: Ibuprofen 600 mg PO TID #15 tablet - Referrals Referrals: Marbella Nunez [Primary Care Provider] - Barbie Shaver DO [Staff Physician] - - Patient Instructions Printed Discharge Instructions: DI for Ovarian Cyst Additional Instructions: You were seen in the emergency room for abdominal pain. The ultrasound showed a cyst on the right ovary with blood. I recommend making an appointment with an farm equipment engine mechanic. Information is provided below. A prescription for ibuprofen was prescribed to your pharmacy. Take as needed for pain no more than every 8 hours (three times per day). Come back to the emergency room if pain gets worse, you feel lightheaded, bleeding gets worse or if any new concerning symptom develops. Thank you - Post Discharge Activity
[2018-09-10] MEDS ORDERED: IBUPROFEN 600 MG TABLET (FP) PO ONE (07:59)
[2018-09-10] MEDS ORDERED: ACETAMINOPHEN 500 MG TABLET (FP) PO ONE (08:03)
[2018-09-10] MEDS ORDERED: ACETAMINOPHEN 325 MG TABLET (FP) ONE (08:30)
== END 2018-09-10 10:32 | disposition home or self-care (01) ==
LOC: JER 04:48
DX: N94.6 Dysmenorrhea, unspecified (principal); N83.201 Unspecified ovarian cyst, right side
CPT/HCPCS: 36415; 76830-TC; 80053; 84703; 85025; 87491; 87591; 99282-25

== ENCOUNTER 2019-04-29 21:17 | Emergency (ER) | payer OTHER ==
[2019-04-29 21:27] VITALS: BP 150/81; PULSE 81; TEMP 98.3; BMI 27.3
[2019-04-29] MEDS ORDERED: ACETAMINOPHEN 325 MG TABLET (FP) PO ONE (21:28)
[2019-04-29] MEDS ORDERED: LIDOCAINE 5% TOPICAL PATCH TP ONE (21:29)
[2019-04-29] MEDS ORDERED: CYCLOBENZAPRINE HCL 10 MG TABLET (FP) PO ONE (21:29)
--- NOTE | 2019-04-29 21:29 | PDOC ---
Rapid Medical Evaluation Time Seen by Provider: 04/29/19 21:24 Medical Evaluation: Allergies Allergy/AdvReac Type Severity Reaction Status Date / Time No Known Allergies Allergy Verified 09/10/18 05:14 04/29/19 21:25 Pt presents for low back pain starting this morning. Pt states that she worked out yesterday and the pain started this morning. The pain is on the right side. Denies bladder/bowel incontinence, saddle anesthesia. Took 600mg of Motrin at 6: 30pm, Exam: TTP of the R lower back with palpable spasm Orders: meds Pt to proceed to the ER for further evaluation Discharge Disposition - Diagnosis Low back pain Qualifiers: Chronicity: acute Back pain laterality: right Sciatica presence: with sciatica Sciatica laterality: sciatica of right side Qualified Code(s): M54.41 - Lumbago with sciatica, right side - Referrals - Patient Instructions - Post Discharge Activity
[2019-04-29] MEDS ORDERED: LIDOCAINE PATCH REMOVAL MC SCH (22:00)
[2019-04-29] MEDS ORDERED: ACETAMINOPHEN 325 MG TABLET (FP) ONE (22:08)
[2019-04-29] MEDS ORDERED: LIDOCAINE 5% TOPICAL PATCH ONE (22:08)
[2019-04-29] MEDS ORDERED: KETOROLAC TROMETHAMINE 60 MG/2 ML VIAL IM ONE (22:09)
[2019-04-29] MEDS ORDERED: KETOROLAC TROMETHAMINE 60 MG/2 ML VIAL ONE (22:09)
[2019-04-29] MEDS ORDERED: CYCLOBENZAPRINE HCL 10 MG TABLET (FP) ONE (22:09)
--- NOTE | 2019-04-29 22:45 | PDOC ---
History of Present Illness - General Chief Complaint: Back Pain Stated Complaint: LWR BACK PAIN Time Seen by Provider: 04/29/19 21:24 - History of Present Illness Initial Comments: 04/29/19 22:43 43-year-old female without comorbidities presents for lower back pain with posterior lateral l right leg radicular symptoms x1 day no loss of bowel or bladder function. She does have a history of kidney stones she feels this pain is different. She was doing heavy lifting yesterday which may have exacerbated her lower back pain. She does come also complained of urinary frequency Past History - Past Medical History Allergies/Adverse Reactions: Allergies Allergy/AdvReac Type Severity Reaction Status Date / Time No Known Allergies Allergy Verified 04/29/19 21:26 Home Medications: Ambulatory Orders Albuterol Sulfate Inhaler - [Ventolin Hfa Inhaler -] 2 inh PO Q4H PRN 09/10/18 Fluticasone Propionate [Flovent Diskus] 100 mcg IH BID 09/10/18 Omeprazole 20 mg PO DAILY 09/10/18 Cephalexin Monohydrate [Keflex -] 500 mg PO BID #14 capsule 04/29/19 Cyclobenzaprine HCl [Flexeril -] 10 mg PO TID PRN #14 tablet 04/29/19 Ibuprofen 600 mg PO TID PRN #15 tablet 04/29/19 Asthma: Yes Cancer: No Cardiac Disorders: No COPD: No Diabetes: No GI Disorders: Yes (acid reflux) HTN: No Seizures: No Thyroid Disease: No - Reproductive History (#): 2 Para: 1 Cervical CA: No Dysfunctional Uterine Bleeding: No Endometrial CA: No Polycystic Ovaries: No Therapeutic (s) & number: No Tubal Ligation: Yes Spontaneous : 0 - Immunization History Immunization Up to Date: Yes - Psycho Social/Smoking Cessation Hx Smoking Status: No Smoking History: Never smoked Have you smoked in the past 12 months: No Number of Cigarettes Smoked Daily: 0 Information on smoking cessation initiated: No Hx Alcohol Use: No Drug/Substance Use Hx: No Substance Use Type: None Hx Substance Use Treatment: No Review of Systems - Review of Systems Constitutional: No: Fever ABD/GI: No: Nausea, Vomiting : Yes: Frequency. No: Burning, Dysuria, Discharge, Hematuria, Incontinence Musculoskeletal: Yes: Back Pain *Physical Exam - Vital Signs Last Vital Signs Temp Pulse Resp BP Pulse Ox 98.3 F 81 18 150/81 100 04/29/19 21:24 04/29/19 21:24 04/29/19 21:24 04/29/19 21:24 04/29/19 21:24 - Physical Exam 04/29/19 22:44 Lumbar spine skin color temperature normal range of motion is slightly decreased. No midline tenderness. Moderate bilateral paralumbar musculature spasm and tenderness 5 out of 5 strength bilateral lower extremities without gross sensorimotor deficits thighs and calves are soft and nontender neurovascular intact ED Treatment Course - Medications Given in the ED: ED Medications Discontinued Medications Generic Name Dose Route Start Last Admin Trade Name Freq PRN Reason Stop Dose Admin Acetaminophen 975 mg 04/29/19 21:28 04/29/19 22:13 Tylenol - PO 04/29/19 21:29 975 mg ONCE ONE Administration Cyclobenzaprine HCl 10 mg 04/29/19 21:29 04/29/19 22:13 Flexeril - PO 04/29/19 21:30 10 mg ONCE ONE Administration Lidocaine 1 patch 04/29/19 21:29 04/29/19 22:13 Lidoderm Patch - TP 04/29/19 21:30 1 patch ONCE ONE Administration Medical Decision Making - Medical Decision Making 04/29/19 22:44 Most likely a lumbar radiculopathy. Will run urine for UTI symptoms. Patient will be signed out to the main emergency room at this time Discharge - Discharge Information Problems reviewed: Yes Clinical Impression/Diagnosis: UTI (lower urinary tract infection) Low back pain Qualifiers: Chronicity: acute Back pain laterality: right Sciatica presence: with sciatica Sciatica laterality: sciatica of right side Qualified Code(s): M54.41 - Lumbago with sciatica, right side Condition: Stable Disposition: HOME - Additional Discharge Information Prescriptions: Cephalexin Monohydrate [Keflex -] 500 mg PO BID #14 capsule Cyclobenzaprine HCl [Flexeril -] 10 mg PO TID PRN #14 tablet PRN Reason: Muscle Spasms Ibuprofen 600 mg PO TID PRN #15 tablet PRN Reason: Back Pain - Follow up/Referral Referrals: Tyrone Talley MD [Staff Physician] - Marbella Nunez [Primary Care Provider] - - Patient Discharge Instructions Patient Printed Discharge Instructions: Low Back Pain Additional Instructions: Do light stretches You are also being treated for urinary tract infection. It is important that you complete all your antibiotics and follow-up with your doctor Apply ice to the area for the first 24 hours. Then alternate with ice and heat after. Take ibuprofen every 6 hours as needed for pain. Take Flexeril as prescribed for muscle spasm. Flexeril can make you sleepy, do not drive or operate heavy machinery after taking the medication. Follow-up with an orthopedic doctor if symptoms persist. A referral was given to you today. Return to the emergency room for any worsening symptoms. - Post Discharge Activity Work/Back to School Note: Back to Work
--- NOTE | 2019-04-29 22:47 | PDOC ---
*Physical Exam - Vital Signs Last Vital Signs Temp Pulse Resp BP Pulse Ox 98.3 F 81 18 150/81 100 04/29/19 21:24 04/29/19 21:24 04/29/19 21:24 04/29/19 21:24 04/29/19 21:24 ED Treatment Course - Medications Given in the ED: ED Medications Discontinued Medications Generic Name Dose Route Start Last Admin Trade Name Lianna PRN Reason Stop Dose Admin Acetaminophen 975 mg 04/29/19 21:28 04/29/19 22:13 Tylenol - PO 04/29/19 21:29 975 mg ONCE ONE Administration Cyclobenzaprine HCl 10 mg 04/29/19 21:29 04/29/19 22:13 Flexeril - PO 04/29/19 21:30 10 mg ONCE ONE Administration Lidocaine 1 patch 04/29/19 21:29 04/29/19 22:13 Lidoderm Patch - TP 04/29/19 21:30 1 patch ONCE ONE Administration Medical Decision Making - Medical Decision Making 04/29/19 23:09 pain to the back is worse with movement. patient reports that she was working out with bands in the gym yesterday. pain is radiating to right hip to right leg. no incontinence of bowel or urine. uA: epiuthelial cell has bacteria. since frequeny of urination will give cephalexin 04/29/19 23:10 Discharge - Discharge Information Problems reviewed: Yes Clinical Impression/Diagnosis: UTI (lower urinary tract infection) Low back pain Qualifiers: Chronicity: acute Back pain laterality: right Sciatica presence: with sciatica Sciatica laterality: sciatica of right side Qualified Code(s): M54.41 - Lumbago with sciatica, right side Disposition: HOME - Additional Discharge Information Prescriptions: Cephalexin Monohydrate [Keflex -] 500 mg PO BID #14 capsule Cyclobenzaprine HCl [Flexeril -] 10 mg PO TID PRN #14 tablet PRN Reason: Muscle Spasms Ibuprofen 600 mg PO TID PRN #15 tablet PRN Reason: Back Pain - Follow up/Referral Referrals: Marbella Nunez [Primary Care Provider] - Tyrone Talley MD [Staff Physician] - - Patient Discharge Instructions Patient Printed Discharge Instructions: Low Back Pain Additional Instructions: Do light stretches You are also being treated for urinary tract infection. It is important that you complete all your antibiotics and follow-up with your doctor Apply ice to the area for the first 24 hours. Then alternate with ice and heat after. Take ibuprofen every 6 hours as needed for pain. Take Flexeril as prescribed for muscle spasm. Flexeril can make you sleepy, do not drive or operate heavy machinery after taking the medication. Follow-up with an orthopedic doctor if symptoms persist. A referral was given to you today. Return to the emergency room for any worsening symptoms. - Post Discharge Activity Work/Back to School Note: Back to Work
[2019-04-29 23:09] LABS: EPI CELLS 1.1 /HPF (0-5/HPF); HYALINE CASTS 0 /lpf (0-8); PH,URINE 7.5 (5.0-8.0); URINE APPEARANCE CLEAR; URINE BACTERIA 56.4 /hpf (NEGATIVE); URINE BILIRUBIN NEGATIVE (NEGATIVE); URINE COLOR YELLOW; URINE GLUCOSE (UA) NEGATIVE (NEGATIVE); URINE KETONE NEGATIVE (NEGATIVE); URINE LEUK ESTERASE NEGATIVE (NEGATIVE); URINE NITRITE NEGATIVE (NEGATIVE); URINE PROTEIN NEGATIVE (NEGATIVE); URINE RBC 6 /hpf (0-4); URINE UROBILINOGEN 0.2 mg/dL (0.2-1.0); URINE WBC 0 /hpf (0-5)
== END 2019-04-29 23:18 | disposition home or self-care (01) ==
LOC: JERFT 21:17
DX: M54.41 Lumbago with sciatica, right side (principal); N39.0 Urinary tract infection, site not specified
CPT/HCPCS: 81003; 87077; 87086; 99284-25